=== PATIENT | female | born 1945 | race Caucasian/White ===

== ENCOUNTER 2024-12-25 19:00 | Emergency (ER) | payer MEDICARE, OTHER, SELFPAY ==
[2024-12-25] VITALS (10 sets, daily range): BP systolic 126–170; BP diastolic 68–83; PULSE 79–93; RESP 15–18; TEMP 36.3; O2SAT 94–98; BMI 21.6
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
--- NOTE | 2024-12-25 19:56 | DI.RAD.S_ITS ---
PROCEDURE: XR ANKLE RT MIN 3V INDICATIONS: pain TECHNIQUE: 3 views of the ankle were acquired. COMPARISON: None. FINDINGS: Bones: No fractures or dislocations. Ankle mortise is normally aligned. No suspicious bony lesions. Soft tissues: No tibiotalar joint effusion. Achilles tendon appears normal. IMPRESSION: No acute bony abnormality or significant effusion. Dictated by: Lee Park M.D. on 12/25/2024 at 20:48 Approved by: Lee Park M.D. on 12/25/2024 at 20:48
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
[2024-12-25] MEDS: OXYCODONE IR 5 MG TABLET PO (20:44)
== END 2024-12-25 22:22 | disposition home or self-care (01) ==
LOC: ED 21:57
PROVIDERS: Emergency Provider Student in an Organized Health Care Education/Training Program
DX: S82.402A Unspecified fracture of shaft of left fibula, initial encounter for closed fracture (principal); S81.812A Laceration without foreign body, left lower leg, initial encounter; V92.09XA Drowning and submersion due to fall off unspecified watercraft, initial encounter; Z86.73 Personal history of transient ischemic attack (TIA), and cerebral infarction without residual deficits; Z79.01 Long term (current) use of anticoagulants
CPT/HCPCS: 29515; 70450; 71250; 72125; 73610; 74176; 99284